=== PATIENT | male | born 1970 | race American Indian/Alaskan Native ===

== ENCOUNTER 2021-09-01 14:02 | Emergency (ER) | payer SELFPAY ==
--- NOTE | 2021-09-01 16:26 | Emergency Department Report ---
ED Back Pain/Injury HPI - General Chief Complaint: Back Pain/Injury Stated Complaint: LEG PAIN/BOTH LEGS Time Seen by Provider: 09/01/21 16:16 Source: patient Limitations: No Limitations - History of Present Illness Initial Comments: Patient is 51 years old male with history of hypertension, noncompliant with medication. Patient presented to the ER complaining of lower back pain that radiated to his buttock and right and left leg for the last few days. Patient denied any recent injury or trauma. He also denied any fever or chills. No bowel or bladder incontinence. No weakness, numbness or tingling sensation. Patient stated that he was taking blood pressure medicine years ago and it caused him some side effect and since then he is not taking any blood pressure medicine. Patient found to have a blood pressure of 173/103. MD Complaint: back pain -: days(s) Similar Symptoms Previously: No Radiation: buttocks, left leg, right leg Severity: moderate Severity scale (0 -10): 6 Quality: sharp Improves With: immobilization Worsens With: movement Context: unknown Associated Symptoms: denies other symptoms - Related Data Allergies Allergy/AdvReac Type Severity Reaction Status Date / Time No Known Allergies Allergy Unverified 09/01/21 14:52 ED Review of Systems ROS: Stated complaint: LEG PAIN/BOTH LEGS Other details as noted in HPI Comment: All other systems reviewed and negative Constitutional: denies: chills, fever Respiratory: denies: cough, shortness of breath, SOB with exertion, SOB at rest Cardiovascular: denies: chest pain Gastrointestinal: denies: abdominal pain, nausea, vomiting, diarrhea, constipation, hematemesis, melena, hematochezia Genitourinary: denies: urgency, dysuria, frequency, hematuria Musculoskeletal: back pain. denies: joint swelling, arthralgia, myalgia Neurological: denies: headache, weakness, numbness, paresthesias, confusion, abnormal gait Psychiatric: denies: suicidal thoughts ED Physical Exam - General Limitations: No Limitations General appearance: alert, in no apparent distress - Head Head exam: Present: atraumatic, normocephalic, normal inspection - Eye Eye exam: Present: normal appearance - ENT ENT exam: Present: normal exam, normal orophraynx, mucous membranes moist - Neck Neck exam: Present: normal inspection, full ROM. Absent: tenderness, meningismus - Respiratory Respiratory exam: Present: normal lung sounds bilaterally - Cardiovascular Cardiovascular Exam: Present: regular rate, normal rhythm, normal heart sounds - GI/Abdominal GI/Abdominal exam: Present: soft, normal bowel sounds. Absent: distended, tenderness, guarding, rebound, rigid, organomegaly, mass, bruit, pulsatile mass, hernia - Extremities Exam Extremities exam: Present: normal inspection, full ROM, normal capillary refill. Absent: tenderness - Back Exam Back exam: Present: normal inspection, full ROM. Absent: CVA tenderness (R), CVA tenderness (L) - Neurological Exam Neurological exam: Present: alert, oriented X3, CN II-XII intact, normal gait, reflexes normal. Absent: motor sensory deficit - Psychiatric Psychiatric exam: Present: normal mood - Skin Skin exam: Present: warm, intact, normal color ED Course Vital Signs 09/01/21 09/01/21 09/01/21 14:35 14:56 17:02 Temperature 98.4 F Pulse Rate 99 H 104 H Respiratory 18 Rate Blood Pressure 149/95 161/112 Blood Pressure 178/103 [Right] O2 Sat by Pulse 97 Oximetry 09/01/21 09/01/21 09/01/21 17:42 17:45 18:00 Temperature Pulse Rate 92 H 81 Respiratory 17 16 Rate Blood Pressure 149/95 149/95 146/97 Blood Pressure [Right] O2 Sat by Pulse 98 96 95 Oximetry 09/01/21 09/01/21 09/01/21 18:16 18:30 18:46 Temperature Pulse Rate 87 85 80 Respiratory 18 15 13 Rate Blood Pressure 146/97 128/97 128/97 Blood Pressure [Right] O2 Sat by Pulse 95 98 95 Oximetry 09/01/21 09/01/21 19:00 19:16 Temperature Pulse Rate 81 77 Respiratory 16 17 Rate Blood Pressure 151/97 151/97 Blood Pressure [Right] O2 Sat by Pulse 96 96 Oximetry ED Medical Decision Making - Lab Data Result diagrams: 09/01/21 16:28 09/01/21 16:28 - Radiology Data Radiology results: report reviewed - Medical Decision Making Patient is 51 years old male with history of hypertension, noncompliant with medication. Patient presented to the ER complaining of lower back pain that radiated to his buttock and right and left leg for the last few days. Patient denied any recent injury or trauma. He also denied any fever or chills. No bowel or bladder incontinence. No weakness, numbness or tingling sensation. Patient stated that he was taking blood pressure medicine years ago and it caused him some side effect and since then he is not taking any blood pressure medicine. Patient found to have a blood pressure of 173/103. Patient found to have a blood glucose of 604 with anion gap of 24. Rest of his labs are fine. Patient received normal saline and insulin. Patient blood pressure improved and his blood glucose is 249. Patient stated that he is feeling much better. I provide patient with Metformin and Norvasc and advised him to follow-up with his primary care physician in the next 2 to 3 days and to return to the ER if he develop any new symptoms. Critical care attestation.: If time is entered above; I have spent that time in minutes in the direct care of this critically ill patient, excluding procedure time. ED Disposition Clinical Impression: Acute hyperglycemia, Malignant hypertension Disposition: 01 HOME / SELF CARE / HOMELESS Is pt being admited?: No Condition: Stable Instructions: Hypertension (ED), Hyperglycemia, [id number], Hypertension, Adult, [id number] Referrals: JAVI BARKSDALE MD [Primary Care Provider] - 3-5 Days
[2021-09-01] MEDS ORDERED: cloNIDine 0.1 MG TAB PO ONE (16:40)
[2021-09-01 16:41] LABS: Basophils # (Auto) 0.1 K/mm3 (0.0-0.1); Basophils % (Auto) 0.7 % (0.0-1.8); Eosinophils # (Auto) 0.1 K/mm3 (0.0-0.4); Eosinophils % (Auto) 1.2 % (0.0-4.3); Hematocrit 45.7 % (35.5-45.6); Lymphocytes # (Auto) 2.4 K/mm3 (1.2-5.4); Lymphocytes % (Auto) 27.6 % (13.4-35.0); Mean Corpuscular HGB Conc 35 % (32-34); Mean Corpuscular Volume 88 fl (84-94); Monocytes # (Auto) 0.5 K/mm3 (0.0-0.8); Monocytes % (Auto) 6.1 % (0.0-7.3); Platelet Count 287 K/mm3 (140-440); Red Blood Count 5.22 M/mm3 (3.65-5.03); Red Cell Distribution Width 13.3 % (13.2-15.2)
[2021-09-01 17:04] LABS: BUN/Creatinine Ratio 12; Blood Urea Nitrogen 11 mg/dL (9-20); Calcium 9.3 mg/dL (8.4-10.2); Hemolysis Index 39
[2021-09-01] MEDS ORDERED: INSULIN REGULAR, HUMAN 100 UNITS/1 ML IV ONE (17:35)
[2021-09-01] MEDS ORDERED: SODIUM CHLORIDE 0.9% 1000 ML 1,000 ML IV ONE (17:35)
--- NOTE | 2021-09-01 18:04 | XRay Report ---
XR spine lumbosacral 2-3V INDICATION / CLINICAL INFORMATION: BACK INJURY. COMPARISON: None available. FINDINGS: BONES/JOINT(S): No acute fracture or subluxation. Mild generalized spondylosis, greatest at L4-5. SOFT TISSUES: No significant abnormality. ADDITIONAL FINDINGS: None. Signer Name: Marquise Glynn MD Signed: 09/01/2021 6:00 PM Workstation Name: [id number]
[2021-09-01 18:09] LABS: Bilirubin,Urine NEG (Negative); Blood,Urine SM (Negative); Color,Urine Straw (Yellow); Urobilinogen,Urine < 2.0 mg/dL (<2.0); WBC,Urine < 1.0 /HPF (0.0-6.0)
[2021-09-01] MEDS ORDERED: MORPHINE 4 MG/1 ML INJ IV ONE (18:12)
[2021-09-01] MEDS ORDERED: ONDANSETRON 4 MG/2 ML INJ IV ONE (18:12)
[2021-09-01 21:31] VITALS: BP 156/91
== END 2021-09-01 21:32 | disposition home or self-care (01) ==
LOC: ED 14:02
DX: R73.9 Hyperglycemia, unspecified (principal); I10 Essential (primary) hypertension
CPT/HCPCS: 36415; 72100; 80048; 81001; 82962; 85025; 96361; 96374; 96375; 99284; J2270; J2405; J7030; Q0162; Q9967; J1815